=== PATIENT | female | born 1995 | race American Indian/Alaskan Native ===

== ENCOUNTER 2021-05-23 16:44 | Emergency (ER) | payer SELFPAY ==
[2021-05-23 17:34] VITALS: BP 117/73
--- NOTE | 2021-05-23 17:43 | Emergency Department Report ---
ED Chest Pain HPI - General Chief Complaint: Chest Pain Stated Complaint: CHEST PAINS Time Seen by Provider: 05/23/21 17:40 Source: patient Mode of arrival: Ambulatory Limitations: No Limitations - History of Present Illness Initial Comments: Patient is a 26-year-old female presents emergency room complaints of left-sided chest pain that began 2 days ago. She states that she only feels the pain with inhaling and exhaling. She denies any body aches, chills, fever, nausea, vomiting, diarrhea, sore throat, ear pain, cough, hemoptysis, leg swelling. No past medical history. No allergies to medications. She denies any family cardiac history. She states that she recently just traveled from [place] and drove here for 15 hours. She denies any recent surgeries or any hormone use. Severity scale (0 -10): 4 - Related Data Previous Rx's Medication Instructions Recorded Last Taken Type Ibuprofen [Motrin 600 MG tab] 600 mg PO Q8H PRN #20 tablet 05/23/21 Unknown Rx Prednisone [predniSONE 10 mg 10 mg PO .TAPER #1 tab.ds.pk 05/23/21 Unknown Rx (6-Day Pack, 21 Tabs)] Allergies Allergy/AdvReac Type Severity Reaction Status Date / Time No Known Allergies Allergy Unverified 05/23/21 17:34 Heart Score - HEART Score History: Slightly suspicious EKG: Normal Age: < 45 Risk factors: No known risk factors Troponin: < normal limit HEART Score: 0 - EKG Read Time Time EKG Completed: 16:32 EKG Read Time: 16:36 ED Review of Systems ROS: Stated complaint: CHEST PAINS Other details as noted in HPI Comment: All other systems reviewed and negative ED Past Medical Hx - Medications Home Medications: Home Medications Medication Instructions Recorded Confirmed Last Taken Type Ibuprofen [Motrin 600 MG tab] 600 mg PO Q8H PRN #20 tablet 05/23/21 Unknown Rx Prednisone [predniSONE 10 mg 10 mg PO .TAPER #1 tab.ds.pk 05/23/21 Unknown Rx (6-Day Pack, 21 Tabs)] ED Physical Exam - General Limitations: No Limitations General appearance: alert, in no apparent distress - Head Head exam: Present: atraumatic, normocephalic - Eye Eye exam: Present: normal appearance - ENT ENT exam: Present: mucous membranes moist - Respiratory Respiratory exam: Present: normal lung sounds bilaterally. Absent: respiratory distress, wheezes, rales, rhonchi, stridor, chest wall tenderness, accessory m uscle use, decreased breath sounds, prolonged expiratory - Cardiovascular Cardiovascular Exam: Present: regular rate, normal rhythm, normal heart sounds. Absent: systolic murmur, diastolic murmur, rubs, gallop - Neurological Exam Neurological exam: Present: alert, oriented X3 - Psychiatric Psychiatric exam: Present: normal affect, normal mood - Skin Skin exam: Present: warm, dry, intact ED Course Vital Signs 05/23/21 17:31 Temperature 98.7 F Pulse Rate 94 H Respiratory 16 Rate Blood Pressure 117/73 [Left] O2 Sat by Pulse 100 Oximetry ED Medical Decision Making - Lab Data Result diagrams: 05/23/21 18:20 05/23/21 18:20 Lab Results 05/23/21 05/23/21 05/23/21 Range/Units 18:20 18:20 18:20 WBC 4.5 (4.5-11.0) K/mm3 RBC 4.95 (3.65-5.03) M/mm3 Hgb 8.9 L (10.1-14.3) gm/dl Hct 31.5 (30.3-42.9) % MCV 64 L (79-97) fl MCH 18 L (28-32) pg MCHC 28 L (30-34) % RDW 19.6 H (13.2-15.2) % Plt Count 276 (140-440) K/mm3 Lymph % (Auto) 32.1 (13.4-35.0) % Upson % (Auto) 6.3 (0.0-7.3) % Eos % (Auto) 1.8 (0.0-4.3) % Baso % (Auto) 0.8 (0.0-1.8) % Lymph # (Auto) 1.5 (1.2-5.4) K/mm3 Upson # (Auto) 0.3 (0.0-0.8) K/mm3 Eos # (Auto) 0.1 (0.0-0.4) K/mm3 Baso # (Auto) 0.0 (0.0-0.1) K/mm3 Seg Neutrophils % 59.0 (40.0-70.0) % Seg Neutrophils # 2.7 (1.8-7.7) K/mm3 D-Dimer 212.77 (0-234) ng/mlDDU Sodium 140 (137-145) mmol/L Potassium 4.1 (3.6-5.0) mmol/L Chloride 106.9 (98-107) mmol/L Carbon Dioxide 23 (22-30) mmol/L Anion Gap 14 mmol/L BUN 9 (7-17) mg/dL Creatinine 0.5 L (0.6-1.2) mg/dL Estimated GFR > 60 ml/min BUN/Creatinine Ratio 18 % Glucose 119 H (65-100) mg/dL Calcium 9.3 (8.4-10.2) mg/dL Total Bilirubin 0.60 (0.1-1.2) mg/dL AST 16 (5-40) units/L ALT 9 (7-56) units/L Alkaline Phosphatase 76 (35-129) units/L Troponin T < 0.010 (0.00-0.029) ng/mL NT-Pro-B Natriuret Pep 36.02 (0-450) pg/mL Total Protein 7.8 (6.3-8.2) g/dL Albumin 4.3 (3.9-5) g/dL Albumin/Globulin Ratio 1.2 % HCG, Qual (Negative) 05/23/21 Range/Units 18:20 WBC (4.5-11.0) K/mm3 RBC (3.65-5.03) M/mm3 Hgb (10.1-14.3) gm/dl Hct (30.3-42.9) % MCV (79-97) fl MCH (28-32) pg MCHC (30-34) % RDW (13.2-15.2) % Plt Count (140-440) K/mm3 Lymph % (Auto) (13.4-35.0) % Upson % (Auto) (0.0-7.3) % Eos % (Auto) (0.0-4.3) % Baso % (Auto) (0.0-1.8) % Lymph # (Auto) (1.2-5.4) K/mm3 Upson # (Auto) (0.0-0.8) K/mm3 Eos # (Auto) (0.0-0.4) K/mm3 Baso # (Auto) (0.0-0.1) K/mm3 Seg Neutrophils % (40.0-70.0) % Seg Neutrophils # (1.8-7.7) K/mm3 D-Dimer (0-234) ng/mlDDU Sodium (137-145) mmol/L Potassium (3.6-5.0) mmol/L Chloride (98-107) mmol/L Carbon Dioxide (22-30) mmol/L Anion Gap mmol/L BUN (7-17) mg/dL Creatinine (0.6-1.2) mg/dL Estimated GFR ml/min BUN/Creatinine Ratio % Glucose (65-100) mg/dL Calcium (8.4-10.2) mg/dL Total Bilirubin (0.1-1.2) mg/dL AST (5-40) units/L ALT (7-56) units/L Alkaline Phosphatase (35-129) units/L Troponin T (0.00-0.029) ng/mL NT-Pro-B Natriuret Pep (0-450) pg/mL Total Protein (6.3-8.2) g/dL Albumin (3.9-5) g/dL Albumin/Globulin Ratio % HCG, Qual Negative (Negative) - EKG Data EKG shows normal: sinus rhythm, axis, QRS complexes, ST-T waves Rate: normal - EKG Data 05/23/21 17:43 mildly prolonged [place] interval at 205 no STEMI - Radiology Data Radiology results: report reviewed Ordering Physician: RAMESH HEADLEY Date of Service: 05/23/21 Procedure(s): XR chest routine 2V Accession Number(s): [id number] cc: RAMESH HEADLEY Fluoro Time In Minutes: XR chest routine 2V INDICATION / CLINICAL INFORMATION: CP COMPARISON: None available. FINDINGS: SUPPORT DEVICES: None. HEART / MEDIASTINUM: No significant abnormality. LUNGS / PLEURA: Lungs are clear. Costophrenic sulci are sharp. No pneumothora x. ADDITIONAL FINDINGS: Nipple piercings are present. IMPRESSION: 1. No acute findings. Signer Name: South Borden MD Signed: 05/23/2021 5:57 PM Workstation Name: [id number] Transcribed By: Dictated By: South Borden MD Electronically Authenticated By: South Borden MD Signed Date/Time: 05/23/211756 DD/ 56 TD/TT: - Medical Decision Making Patient is a 26-year-old female presents emergency room complaints of left-sided chest pain that began 2 days ago. She states that she only feels the pain with inhaling and exhaling. She denies any body aches, chills, fever, nausea, vomiting, diarrhea, sore throat, ear pain, cough, hemoptysis, leg swelling. No past medical history. No allergies to medications. She denies any family cardiac history. She states that she recently just traveled from [place] and drove here for 15 hours. She denies any recent surgeries or any hormone use. Vitals are normal. No abnormality on physical examination as documented in chart. EKG is stable. CXR: 1. No acute findings. Labs are normal. Troponin is negative. D-dimer is negative. PERC criteria negative, do not suspect PE. Attempts have been greater than 24 hours, according to the up-to-date medical literature 1 negative troponin may be performed. Symptoms could be related to pleuritis. Patient given prescription for medications. Advised patient Please take medication as prescribed. Follow-up with your primary care doctor. Follow-up with a service desk lead. Return to emergency room immediately for any new or worsening symptoms. Recommend for you to get outpatient COVID-19 testing and to self quarantine for 10 days from onset of symptoms if positive. Critical care attestation.: If time is entered above; I have spent that time in minutes in the direct care of this critically ill patient, excluding procedure time. ED Disposition Clinical Impression: Chest pain Qualifiers: Chest pain type: chest pain on breathing Qualified Code(s): R07.1 - Chest pain on breathing Disposition: 01 HOME / SELF CARE / HOMELESS Is pt being admited?: No Does the pt Need Aspirin: No Condition: Stable Instructions: Nonspecific Chest Pain, Adult, Pleurisy Additional Instructions: Please take medication as prescribed. Follow-up with your primary care doctor. Follow-up with a service desk lead. Return to emergency room immediately for any new or worsening symptoms. Recommend for you to get outpatient COVID-19 testing and to self quarantine for 10 days from onset of symptoms if positive. Prescriptions: Ibuprofen [Motrin 600 MG tab] 600 mg PO Q8H PRN #20 tablet PRN Reason: Pain Prednisone [predniSONE 10 mg (6-Day Pack, 21 Tabs)] 10 mg PO .TAPER #1 tab.ds.pk Referrals: MADISON BORRERO MD [Staff Physician] - 3-5 Days DANIEL MARTE MD [Staff Physician] - 3-5 Days Time of Disposition: 19:18 Print Language: PUERT[place] RICAN
--- NOTE | 2021-05-23 18:03 | XRay Report ---
XR chest routine 2V INDICATION / CLINICAL INFORMATION: CP COMPARISON: None available. FINDINGS: SUPPORT DEVICES: None. HEART / MEDIASTINUM: No significant abnormality. LUNGS / PLEURA: Lungs are clear. Costophrenic sulci are sharp. No pneumothorax. ADDITIONAL FINDINGS: Nipple piercings are present. IMPRESSION: 1. No acute findings. Signer Name: South Borden MD Signed: 05/23/2021 5:57 PM Workstation Name: [id number]
[2021-05-23 18:41] LABS: Basophils % (Auto) 0.8 % (0.0-1.8); Eosinophils # (Auto) 0.1 K/mm3 (0.0-0.4); Eosinophils % (Auto) 1.8 % (0.0-4.3); Hematocrit 31.5 % (30.3-42.9); Hemoglobin 8.9 gm/dl (10.1-14.3); Lymphocytes # (Auto) 1.5 K/mm3 (1.2-5.4); Lymphocytes % (Auto) 32.1 % (13.4-35.0); Mean Corpuscular HGB Conc 28 % (30-34); Mean Corpuscular Volume 64 fl (79-97); Monocytes # (Auto) 0.3 K/mm3 (0.0-0.8); Monocytes % (Auto) 6.3 % (0.0-7.3); Platelet Count 276 K/mm3 (140-440); Red Blood Count 4.95 M/mm3 (3.65-5.03); Red Cell Distribution Width 19.6 % (13.2-15.2)
[2021-05-23 19:06] LABS: Alanine Aminotransferase 9 units/L (7-56); Albumin 4.3 g/dL (3.9-5); Blood Urea Nitrogen 9 mg/dL (7-17); Calcium 9.3 mg/dL (8.4-10.2); Hemolysis Index 4
[2021-05-23 19:11] LABS: BUN/Creatinine Ratio 18
--- NOTE | 2021-05-25 10:12 | Electrocardiograph Report ---
[facility] Test Date: 2021-05-23 Test Time: 16:32:38 Pat Name: stefania alvarez Department: Room: Gender: F [employer] Facility Rental Clerk: NURSE : 1995 Requested By: GERMAN COELHO Order Number: [id number] Reading MD: Theodore Calhoun Measurements Intervals [place] Rate: 99 P: 63 [place]: 205 QRS: 72 QRSD: 81 T: 40 QT: 340 QTc: 436 Interpretive Statements Sinus rhythm Prolonged [place] interval No previous ECG available for comparison Electronically Signed On 05-25-2021 10:12:28 EDT by Theodore Calhoun
== END 2021-05-23 19:26 | disposition home or self-care (01) ==
LOC: ED 16:44
DX: R07.89 Other chest pain (principal); Z79.899 Other long term (current) drug therapy
CPT/HCPCS: 36415; 71046; 80053; 83880; 84484; 84703; 85025; 85379; 93005; 99283